=== PATIENT | female | born 1965 | race Caucasian/White ===

== ENCOUNTER → 2016-05-16 | Outpatient (CLI) | payer BC ==
[~2016-05-16] VITALS: Ht 162.6 cm; Wt 67.1 kg
[~2016-05-16] MED LIST: MECLIZINE HCL25 MG PO; PROZAC20 MG PO; RELPAX20 MG PO
== END | disposition home or self-care (01) ==
LOC: AMB 11:00
PROC: 0WJP8ZZ Inspection of Gastrointestinal Tract, Via Natural or Artificial Opening Endoscopic Approach (ICD-10-PCS; principal; 2016-05-16)
DX: Z12.11 Encounter for screening for malignant neoplasm of colon (principal); F41.9 Anxiety disorder, unspecified; F32.9 Major depressive disorder, single episode, unspecified; Z86.19 Personal history of other infectious and parasitic diseases; Z83.3 Family history of diabetes mellitus; Z82.49 Family history of ischemic heart disease and other diseases of the circulatory system; Z88.2 Allergy status to sulfonamides